=== PATIENT | male | born 1980 | race Caucasian/White ===

== ENCOUNTER 2021-09-04 12:11 | Inpatient (IN) | payer OTHER ==
[~2021-09-04] VITALS: Ht 167.6 cm; Wt 94.8 kg
[2021-09-04 13:21] LABS: HEMOGLOBIN 14.2 gm/dl (14.0-17.5); RED BLOOD COUNT 4.84 M/UL (4.20-5.50); WHITE BLOOD COUNT 9.8 K/UL (4.5-11.0)
[2021-09-04 13:50] LABS: BUN/CREATININE RATIO 12 (0-10)
[2021-09-05 04:08] LABS: HEMOGLOBIN 12.9 gm/dl (14.0-17.5); RED BLOOD COUNT 4.48 M/UL (4.20-5.50); WHITE BLOOD COUNT 7.5 K/UL (4.5-11.0)
[2021-09-05 04:26] LABS: BUN/CREATININE RATIO 17 (0-10)
[2021-09-05] MEDS ORDERED: ATORVASTATIN CA10 MG PO (13:34)
[2021-09-05] MEDS ORDERED: NOVOLOG FL100 UNIT/1 SQ (13:35)
[2021-09-05] MEDS ORDERED: LANTUS SOL100 UNIT/1 SQ (13:37)
[2021-09-05] MEDS ORDERED: LISINOPRIL-HCT1 EAC1 PO (13:38)
[2021-09-05] MEDS ORDERED: METFORMIN HCL1000 MG PO (13:39)
[2021-09-06 06:08] LABS: HEMOGLOBIN 12.6 gm/dl (14.0-17.5); RED BLOOD COUNT 4.43 M/UL (4.20-5.50)
[2021-09-06 06:09] LABS: WHITE BLOOD COUNT 5.5 K/UL (4.5-11.0)
[2021-09-06 06:21] LABS: BUN/CREATININE RATIO 16 (0-10)
[2021-09-07 02:58] LABS: HEMOGLOBIN 12.9 gm/dl (14.0-17.5); RED BLOOD COUNT 4.61 M/UL (4.20-5.50)
[2021-09-07 03:01] LABS: WHITE BLOOD COUNT 7.3 K/UL (4.5-11.0)
[2021-09-07 03:24] LABS: BUN/CREATININE RATIO 15 (0-10)
--- NOTE | 2021-09-07 11:06 | NUR ---
Patient's blood glucose was 449. MD Story made aware, ordered 20 units of regular insulin once. Insulin was given, recheck due in 2 hours.
[2021-09-08 02:58] LABS: HEMOGLOBIN 12.4 gm/dl (14.0-17.5); RED BLOOD COUNT 4.38 M/UL (4.20-5.50)
[2021-09-08 03:32] LABS: BUN/CREATININE RATIO 20 (0-10)
[2021-09-08] MEDS ORDERED: HYDROCODON-ACE1 EAC4 PO (09:55)
[2021-09-09 03:11] LABS: HEMOGLOBIN 12.3 gm/dl (14.0-17.5); RED BLOOD COUNT 4.35 M/UL (4.20-5.50); WHITE BLOOD COUNT 8.1 K/UL (4.5-11.0)
[2021-09-09 03:23] LABS: BUN/CREATININE RATIO 23 (0-10)
[2021-09-10 05:12] LABS: HEMOGLOBIN 12.6 gm/dl (14.0-17.5); RED BLOOD COUNT 4.51 M/UL (4.20-5.50); WHITE BLOOD COUNT 8.9 K/UL (4.5-11.0)
[2021-09-10 05:42] LABS: BUN/CREATININE RATIO 24 (0-10)
[2021-09-10] MEDS ORDERED: ZYVOX600 MG PO (10:14)
== END 2021-09-10 17:01 | disposition home or self-care (01) | DRG 603 ==
LOC: ER1 12:11 → M/S 18:21 → CDU 18:21 → M/S 09-05 13:55
PROVIDERS: Physician Assistant Medical; Surgery; ADMIT Internal Medicine
PROC: 0J950ZZ Drainage of Left Neck Subcutaneous Tissue and Fascia, Open Approach (ICD-10-PCS; principal; 2021-09-07 07:00)
DX: L02.11 Cutaneous abscess of neck (principal); B95.62 Methicillin resistant Staphylococcus aureus infection as the cause of diseases classified elsewhere; B95.1 Streptococcus, group B, as the cause of diseases classified elsewhere; Z20.822 Contact with and (suspected) exposure to COVID-19; E11.65 Type 2 diabetes mellitus with hyperglycemia; Z79.01 Long term (current) use of anticoagulants; Z79.82 Long term (current) use of aspirin; Z83.3 Family history of diabetes mellitus; Z86.73 Personal history of transient ischemic attack (TIA), and cerebral infarction without residual deficits; Z90.49 Acquired absence of other specified parts of digestive tract; Z79.4 Long term (current) use of insulin
CPT/HCPCS: 36415; 70491; 80048; 80053; 80202; 80307; 82550; 82962; 83036; 85025; 87040; 87070; 87077; 87186; 87205; 96365; 96366; 96367; 96372; 96375; 96376; 99284; G0378; J0878; J1650; J1885; J2250; J2270; J2704; J3010; J3370; J7070; J7120; Q9967